=== PATIENT | female | born 1995 ===

== ENCOUNTER 2019-09-17 01:24 | Inpatient (IN) ==
[2019-09-17] MEDS: Lactated Ringers 1000 ml BAG 1,000 ML IV SCH ×2 (06:55→21:37)
[2019-09-17 07:54] LABS: ABS Eosinophils 0.2 10^3/ul (0-0.6); ABS Lymphocytes 1.5 10^3/ul (1.0-4.8); ABS Monocytes 0.5 10^3/ul (0-0.8); ABS Neutrophils 3.8 10^3/ul (1.5-7.7); Eosinophil % 3.2 %; Hematocrit 30 % (35-47); Hemoglobin 10.6 g/dL (12.0-16.0); Lymphocyte % 25.7 %; Mean Corpuscular HGB Conc 35 g/dL (31-36); Mean Corpuscular Hemoglobin 27 pg (27-31); Mean Corpuscular Volume 78 fL (80-97); Mean Platelet Volume 9.5 fL (7.4-10.4); Platelet Count 237 10^3/uL (150-450); Red Blood Count 3.88 10^6 /uL (3.70-4.87); Red Cell Distribution Width 16 % (10-15)
[2019-09-17 13:14] LABS: Urine Benzodiazepine Screen None Detected (None Detect); Urine Cannabinoids Screen None Detected (None Detect); Urine Opiates Screen None Detected (None Detect)
[2019-09-17] MEDS ORDERED: OBEPIDURAL 250 ML EPIDURAL ONE (16:39)
[2019-09-17] MEDS: Lactated Ringers 1000 ml BAG 1,000 ML IV ONE (16:44)
[2019-09-17] MEDS ORDERED: EPHEDrine (Pressors) 50 MG/ML VIAL IV PUSH PRN ×2 (19:55)
[2019-09-17] MEDS ORDERED: Lactated Ringers 1000 ml BAG 1,000 ML IV ONE (19:55)
[2019-09-17] MEDS ORDERED: Phenylephrine 40 mcg/mL 10mL (400mcg) SYRINGE IV PUSH PRN ×2 (19:55)
[2019-09-17] MEDS ORDERED: Sodium Citrate/Citric Acid LIQ 15 ML UDC PO PRN (19:55)
[2019-09-17] MEDS ORDERED: Lactated Ringers 1000 ml BAG 1,000 ML IV SCH (20:00)
[2019-09-17] MEDS ORDERED: OBEPIDURAL 250 ML EPIDURAL SCH (20:00)
[2019-09-17] MEDS ORDERED: Oxytocin in LR 20 UNITS/1,000 ML BAG IVPB ONE (20:23)
[2019-09-17] MEDS ORDERED: Oxytocin in LR 20 UNITS/1,000 ML BAG IVPB SCH (21:00)
[2019-09-18] MEDS ORDERED: Dibucaine 1% OINT 28.35 GM TUBE PR PRN (01:08)
[2019-09-18] MEDS ORDERED: Witch Hazel PAD JAR TOPICAL PRN (01:08)
[2019-09-18] MEDS ORDERED: Tetan/Diph/Pertus SYR(Tdap) 0.5 ML SYR(BOOSTRIX) use SYR contains LATEX IM ONE (01:08)
[2019-09-18] MEDS ORDERED: Lactated Ringers 1000 ml BAG 1,000 ML IV SCH (02:00)
[2019-09-18] MEDS ORDERED: Oxytocin in LR 20 UNITS/1,000 ML BAG IVPB SCH (02:00)
[2019-09-18] MEDS ORDERED: Lidocaine 1% VIAL 10 MG/ML VIAL ONE (04:23)
[2019-09-18] MEDS: Lactated Ringers 1000 ml BAG 1,000 ML IV ONE (16:48)
[2019-09-19 07:00] LABS: ABS Eosinophils 0.3 10^3/ul (0-0.6); ABS Lymphocytes 1.5 10^3/ul (1.0-4.8); ABS Monocytes 0.6 10^3/ul (0-0.8); Eosinophil % 3.8 %; Hematocrit 29 % (35-47); Hemoglobin 9.8 g/dL (12.0-16.0); Lymphocyte % 17.4 %; Mean Corpuscular HGB Conc 34 g/dL (31-36); Mean Corpuscular Hemoglobin 27 pg (27-31); Mean Corpuscular Volume 79 fL (80-97); Mean Platelet Volume 8.5 fL (7.4-10.4); Platelet Count 217 10^3/uL (150-450); Red Blood Count 3.68 10^6 /uL (3.70-4.87); Red Cell Distribution Width 16 % (10-15); White Blood Count 8.4 10^3/uL (3.5-10.8)
[2019-09-19 07:13] VITALS: BP 111/62
== END 2019-09-19 19:20 | disposition home or self-care (01) | DRG 560 ==
LOC: MCHOBOUT 01:24 → MCHOB 04:42
PROVIDERS: ADMIT Obstetrics & Gynecology; ATTEND Obstetrics & Gynecology